=== PATIENT | female | born 1965 | race Caucasian/White ===

== ENCOUNTER 2024-02-17 10:55 | Emergency (ER) | payer OTHER ==
[~2024-02-17] VITALS: Ht 165.1 cm; Wt 65.8 kg
[2024-02-17] MEDS ORDERED: ACETAMINOPHEN ES 500 MG TABLET ONE (11:58)
[2024-02-17 12:03] LABS: HEMATOCRIT 36.1 % (31.2-41.9); HEMOGLOBIN 12.3 g/dL (10.9-14.3); LYMPHOCYTES # (AUTO) 1.4 K/uL (0.8-4.8); LYMPHOCYTES % (AUTO) 28.9 % (20.5-51.5); MEAN CORPUSCULAR HEMOGLOBIN 28.4 uug (24.7-32.8); MEAN CORPUSCULAR HGB CONC 34 g/dL (32.3-35.6); MONOCYTES # (AUTO) 0.4 K/uL (0.1-1.30); MONOCYTES % (AUTO) 7.6 % (0.0-11.0); NEUTROPHILS % (AUTO) 61.5 % (38.5-71.5); PLATELET COUNT (AUTO) 253 K/uL (179-408); RED BLOOD CELL COUNT(AUTO) 4.35 MIL/uL (3.63-4.92); RED CELL DISTRIBUTION WIDTH 13.7 % (12.3-17.7); WHITE BLOOD COUNT (AUTO) 4.8 K/uL (3.8-11.8)
[2024-02-17] MEDS: IV NORMAL SALINE 500 ML BAG IV ONE (12:03)
[2024-02-17] MEDS: ACETAMINOPHEN ES 500 MG TABLET PO ONE (12:03)
[2024-02-17 12:14] LABS: DIFFERENTIAL COMMENT 1
[2024-02-17 12:17] LABS: CALCIUM 8.8 mg/dL (8.5-10.1); CARBON DIOXIDE 29 mmol/L (21-32); CHLORIDE 108 mmol/L (98-107); CREATININE 0.4 mg/dL (0.6-1.3); GLUCOSE 101 mg/dL (74-106); SODIUM SERUM 145 mmol/L (136-145); UREA NITROGEN, BLOOD 16 mg/dL (7-18)
[2024-02-17 12:22] LABS: ALANINE AMINOTRANSFERASE 17 U/L (14-59); ALBUMIN 3.7 g/dL (3.4-5.0); ALKALINE PHOSPHATASE 88 U/L (50-136); ASPARTATE AMINOTRANSFERASE 5 U/L (15-37); BILIRUBIN,DIRECT 0.1 mg/dL (0.0-0.2); BILIRUBIN,TOTAL 0.4 mg/dL (0.2-1.0); LIPASE 59 U/L (16-77)
[2024-02-17 13:54] VITALS: BP 99/56; O2SAT 98
== END 2024-02-17 13:55 | disposition home or self-care (01) ==
LOC: ER 10:55
DX: H43.812 Vitreous degeneration, left eye (principal); N64.4 Mastodynia; I71.20 Thoracic aortic aneurysm, without rupture, unspecified; R10.10 Upper abdominal pain, unspecified; G89.29 Other chronic pain; M54.9 Dorsalgia, unspecified; M25.562 Pain in left knee; Z98.890 Other specified postprocedural states
CPT/HCPCS: 36415; 71250; 83690; 85025; 93005; A4606; A4663; A9150